=== PATIENT | female | born 1940 | race Caucasian/White ===

== ENCOUNTER 2017-11-14 12:42 | Day surgery (SDC) | payer MEDICARE, OTHER ==
[2017-11-14] MEDS ORDERED: LIDOCAINE 2% (SDV) 5 ML INJ (14:23)
[2017-11-14] MEDS ORDERED: ETOMIDATE 20 MG INJ (14:23)
[2017-11-14] MEDS ORDERED: PROPOFOL 20 ML (14:23)
[2017-11-14] MEDS ORDERED: FENTAnyl 50 MCG/ML VIAL (14:23)
== END 2017-11-14 15:17 | disposition home or self-care (01) ==
LOC: GIL 12:42
DX: R19.4 Change in bowel habit (principal); K29.70 Gastritis, unspecified, without bleeding; D12.6 Benign neoplasm of colon, unspecified; K57.90 Diverticulosis of intestine, part unspecified, without perforation or abscess without bleeding; K64.8 Other hemorrhoids; D17.79 Benign lipomatous neoplasm of other sites
CPT/HCPCS: 43239; 88305; 88312